=== PATIENT | male | born 1945 | race Caucasian/White ===

== ENCOUNTER 2023-02-09 09:12 | Inpatient (IN) | payer MEDICARE ==
[~2023-02-09] VITALS: Ht 177.8 cm; Wt 81.6 kg
[2023-02-09] VITALS (8 sets, daily range): BP systolic 95–110; BP diastolic 67–75; PULSE 98–107; RESP 21–30; O2SAT 90–96
[2023-02-09 10:11] LABS: BASOPHILS % 0.3 % (0.0-1.0); EOSINOPHILS % 0.3 % (0.0-6.0); HEMATOCRIT 39.6 % (38.2-49.6); HEMOGLOBIN 13.2 g/dL (14.0-18.0); LYMPHOCYTES # (AUTO) 0.9 (1.0-3.2); LYMPHOCYTES % 7.7 % (18.0-39.1); MEAN CORPUSCULAR HEMOGLOBIN 28.8 pg (28-32); MEAN CORPUSCULAR HGB CONC 33.3 g/dL (31-35); MEAN CORPUSCULAR VOLUME 86.3 fL (81-99); MONOCYTES # (AUTO) 0.7 (0.2-0.8); MONOCYTES % 6.1 % (4.4-11.3); NEUTROPHILS # (AUTO) 9.9 (2.1-6.9); NEUTROPHILS % 84.9 % (38.7-80.0); PLATELET COUNT 346 x10e3/uL (140-360); RED BLOOD COUNT 4.59 x10e6/uL (4.3-5.7); RED CELL DISTRIBUTION WIDTH 14.6 % (11.7-14.4); WHITE BLOOD COUNT 11.62 x10e3/uL (4.8-10.8)
[2023-02-09 10:49] LABS: ALBUMIN 3.5 g/dL (3.5-5.0); ALBUMIN/GLOBULIN RATIO 0.8 (0.8-2.0); ANION GAP 19.4 mmol/L (8-16); BILIRUBIN,TOTAL 1.7 mg/dL (0.2-1.2); CALCIUM 9.7 mg/dL (8.4-10.2); CREATININE, SERUM 1.37 mg/dL (0.72-1.25); POTASSIUM 4.4 mmol/L (3.5-5.1); TOTAL PROTEIN 7.8 g/dL (6.5-8.1)
[2023-02-09] MEDS ORDERED: SODIUM CHLORIDE 0.9% 1000ML 1,000 ML IV SCH ×2 (11:15→13:00)
[2023-02-09] MEDS ORDERED: ASPIRIN 81 MG CHEW TAB PO ONE ×2 (11:15→11:30)
[2023-02-09] MEDS ORDERED: IOPAMIDOL 370 MG/ML 100 ML INFUS..BTL INJ ONE ×2 (11:28→11:34)
[2023-02-09] MEDS ORDERED: SODIUM CHLORIDE 0.9% 100 ML ONE (11:28)
[2023-02-09] MEDS ORDERED: LIDOCAINE HCL 2% LOCAL 20 ML VIAL ONE (11:33)
[2023-02-09] MEDS ORDERED: HEPARIN SOD/SOD CHLORIDE 2,000 ML ONE (11:34)
[2023-02-09] MEDS ORDERED: SODIUM CHLORIDE 0.9% 1000ML 1,000 ML ONE (11:44)
[2023-02-09] MEDS ORDERED: MIDAZOLAM HCL 2 MG/2 ML VIAL ONE (12:12)
[2023-02-09] MEDS ORDERED: BIVALRIUDIN 250 MG/VIAL VIAL IV ONE (12:13)
[2023-02-09] MEDS ORDERED: FENTANYL CITRATE/PF 100MCG/2 ML INJ ONE (12:14)
[2023-02-09] MEDS ORDERED: ONDANSETRON HCL INJ 2MG/ML 2ML 2 MG/ML VIAL IV PRN (13:00)
[2023-02-10] MEDS ORDERED: ASPIRIN 325 MG TAB PO SCH (09:00)
== END 2023-02-09 15:30 | disposition short-term general hospital (02) | DRG 280 ==
LOC: ER 09:16 → ERHOLD 11:30
PROVIDERS: ADMIT Family Medicine Adult Medicine; ATTEND Family Medicine Adult Medicine
PROC: 4A023N7 Measurement of Cardiac Sampling and Pressure, Left Heart, Percutaneous Approach (ICD-10-PCS; principal; 2023-02-09)
PROC: B2111ZZ Fluoroscopy of Multiple Coronary Arteries using Low Osmolar Contrast (ICD-10-PCS; 2023-02-09)
PROC: B2151ZZ Fluoroscopy of Left Heart using Low Osmolar Contrast (ICD-10-PCS; 2023-02-09)
DX: I21.9 Acute myocardial infarction, unspecified (principal); I50.21 Acute systolic (congestive) heart failure; R57.0 Cardiogenic shock; J96.91 Respiratory failure, unspecified with hypoxia; N17.9 Acute kidney failure, unspecified; J90 Pleural effusion, not elsewhere classified; I25.10 Atherosclerotic heart disease of native coronary artery without angina pectoris; E87.70 Fluid overload, unspecified; D72.829 Elevated white blood cell count, unspecified; I13.10 Hypertensive heart and chronic kidney disease without heart failure, with stage 1 through stage 4 chronic kidney disease, or unspecified chronic kidney disease; N18.31 Chronic kidney disease, stage 3a
CPT/HCPCS: 36415; 71045; 71260; 74174; 80053; 83690; 83880; 84484; 85025; 86850; 86900; 87040; 93306; 93458; 99152; 99153; 99284; C1887; J0583; J0696; J2001; J2250; J7030; J7050; Q9967; U0002